=== PATIENT | male | born 1980 | race Hispanic/Latino ===

== ENCOUNTER 2016-08-21 09:07 | Emergency (ER) | payer SELFPAY ==
[2016-08-21] MEDS ORDERED: methylPREDNISolone Acetate 40 mg/ml Vial ONE (10:38)
== END 2016-08-21 11:10 | disposition home or self-care (01) ==
LOC: MADERS 09:07
DX: T78.40XA Allergy, unspecified, initial encounter (principal)
CPT/HCPCS: 96372; J1030; J1040